=== PATIENT | male | born 1970 | race Caucasian/White ===

== ENCOUNTER 2020-07-27 16:03 | Inpatient (IN) | payer MEDICARE ==
[~2020-07-27] VITALS: Ht 162.6 cm; Wt 107.5 kg
[2020-07-27 16:51] LABS: CREATINE KINASE 355 IU/L (30-200)
[2020-07-27 18:25] VITALS: BP 161/99
[2020-07-27] MEDS ORDERED: HEPARIN SOD (PORCINE) 1000 UNIT/ML SDV IV PRN (19:15)
[2020-07-27] MEDS ORDERED: MANNITOL 25% 12.5GM/50 ML VIAL IV PRN (19:15)
[2020-07-27] MEDS ORDERED: SODIUM CHLORIDE 0.9% 1000ML 2,000 ML IV PRN (19:15)
[2020-07-27] MEDS ORDERED: NICOTINE 21 MG/EA PATCH TOP PRN (19:45)
[2020-07-27] MEDS ORDERED: ACETAMINOPHEN 325 MG TAB PO PRN (19:45)
[2020-07-27] MEDS ORDERED: ACETAMINOPHEN/CODEINE 300MG - 30MG TAB PO PRN (19:45)
[2020-07-27] MEDS ORDERED: HYDRALAZINE HCL 20 MG/ML VIAL IV PRN (19:45)
[2020-07-27 20:00] VITALS: BP 179/94
[2020-07-27] MEDS: ONDANSETRON HCL INJ 2MG/ML 2ML 2 MG/ML VIAL IV PRN (21:30)
[2020-07-27] MEDS: MORPHINE SULFATE INJ 4 MG/ML INJ 1ML IV PRN (21:30)
[2020-07-27] MEDS ORDERED: PERMETHRIN60 GM (21:47)
[2020-07-27] MEDS ORDERED: AMLODIPINE BESY10 MG PO (21:47)
[2020-07-27] MEDS ORDERED: ATORVASTATIN CA20 MG PO (21:47)
[2020-07-27] MEDS ORDERED: ARIPIPRAZOLE5 MG PO (21:47)
[2020-07-27] MEDS ORDERED: SERTRALINE HCL100 MG PO (21:47)
[2020-07-27 22:00] VITALS: BP 179/94
[2020-07-28] VITALS: BP 162/93
[2020-07-28 02:57] LABS: CREATINE KINASE 273 IU/L (30-200)
[2020-07-28] MEDS: MORPHINE SULFATE INJ 4 MG/ML INJ 1ML IV PRN ×3 (03:38→21:11)
[2020-07-28] MEDS: ONDANSETRON HCL INJ 2MG/ML 2ML 2 MG/ML VIAL IV PRN ×2 (03:38→21:11)
[2020-07-28 04:00] VITALS: BP 125/86
[2020-07-28 06:18] LABS: BASOPHILS # (AUTO) 0.1 (0.0-0.1); BASOPHILS % 0.7 % (0.0-1.0); EOSINOPHILS # (AUTO) 0.3 (0.0-0.4); EOSINOPHILS % 3.6 % (0.0-6.0); HEMATOCRIT 25.5 % (38.2-49.6); HEMOGLOBIN 8.5 g/dL (14.0-18.0); LYMPHOCYTES # (AUTO) 2.8 (1.0-3.2); LYMPHOCYTES % 30.8 % (18.0-39.1); MEAN CORPUSCULAR HEMOGLOBIN 29.4 pg (28-32); MEAN CORPUSCULAR HGB CONC 33.3 g/dL (31-35); MEAN CORPUSCULAR VOLUME 88.2 fL (81-99); MONOCYTES # (AUTO) 0.9 (0.2-0.8); MONOCYTES % 9.4 % (4.4-11.3); NEUTROPHILS % 55.2 % (38.7-80.0); PLATELET COUNT 255 x10e3/uL (140-360); RED BLOOD COUNT 2.89 x10e6/uL (4.3-5.7); RED CELL DISTRIBUTION WIDTH 13.2 % (11.7-14.4)
[2020-07-28 06:42] LABS: ALBUMIN 3.6 g/dL (3.5-5.0); ALBUMIN/GLOBULIN RATIO 1.2 (0.8-2.0); ANION GAP 14.2 mmol/L (8-16); CALCIUM 7.1 mg/dL (8.4-10.2); CREATININE, SERUM 7.03 mg/dL (0.72-1.25); MAGNESIUM 1.6 MG/DL (1.3-2.1); PHOSPHORUS 6.2 MG/DL (2.3-4.7); POTASSIUM 4.2 mmol/L (3.5-5.1)
[2020-07-28 08:04] VITALS: BP 125/86
[2020-07-28 08:28] VITALS: BP 139/82
[2020-07-28 08:58] LABS: CREATINE KINASE 242 IU/L (30-200)
[2020-07-28] MEDS ORDERED: PERMETHRIN 5% CREAM 60 GM TUBE TOP ONE (09:00)
[2020-07-28 16:08] VITALS: BP 140/104
[2020-07-28 20:00] VITALS: BP 135/88
[2020-07-28] MEDS: ATORVASTATIN 20 MG TAB PO SCH (21:11)
[2020-07-29] VITALS (8 sets, daily range): BP systolic 126–161; BP diastolic 74–109
[2020-07-29 06:18] LABS: BASOPHILS # (AUTO) 0.1 (0.0-0.1); BASOPHILS % 0.9 % (0.0-1.0); EOSINOPHILS # (AUTO) 0.4 (0.0-0.4); EOSINOPHILS % 4.5 % (0.0-6.0); HEMATOCRIT 26.8 % (38.2-49.6); HEMOGLOBIN 8.5 g/dL (14.0-18.0); LYMPHOCYTES # (AUTO) 2.6 (1.0-3.2); LYMPHOCYTES % 31.8 % (18.0-39.1); MEAN CORPUSCULAR HEMOGLOBIN 28.4 pg (28-32); MEAN CORPUSCULAR HGB CONC 31.7 g/dL (31-35); MEAN CORPUSCULAR VOLUME 89.6 fL (81-99); MONOCYTES # (AUTO) 0.7 (0.2-0.8); NEUTROPHILS # (AUTO) 4.3 (2.1-6.9); NEUTROPHILS % 53.6 % (38.7-80.0); PLATELET COUNT 249 x10e3/uL (140-360); RED BLOOD COUNT 2.99 x10e6/uL (4.3-5.7); RED CELL DISTRIBUTION WIDTH 13.2 % (11.7-14.4)
[2020-07-29 06:41] LABS: ALBUMIN 3.8 g/dL (3.5-5.0); ALBUMIN/GLOBULIN RATIO 1.3 (0.8-2.0); ANION GAP 15.1 mmol/L (8-16); CALCIUM 7.7 mg/dL (8.4-10.2); CREATININE, SERUM 6.52 mg/dL (0.72-1.25); POTASSIUM 4.1 mmol/L (3.5-5.1)
[2020-07-29 07:05] LABS: % IRON SATURATION 16 % (15-50); IRON 54 ug/dL (65-175); TOTAL IRON BINDING CAPACITY 340 ug/dL (261-478); TRANSFERRIN 243 mg/dL (174-364)
[2020-07-29] MEDS ORDERED: ARIPIPRAZOLE 5 MG PO SCH (09:00)
[2020-07-29] MEDS ORDERED: HEPARIN SOD (PORCINE) 1000 UNIT/ML SDV IV PRN (09:45)
[2020-07-29] MEDS: ARIPIPRAZOLE 5 MG TABLET PO SCH (12:01)
[2020-07-29] MEDS: AMLODIPINE BESYLATE 10 MG TAB PO SCH (12:01)
[2020-07-29] MEDS: MORPHINE SULFATE INJ 4 MG/ML INJ 1ML IV PRN ×2 (12:01→20:37)
[2020-07-29] MEDS: SERTRALINE HCL 100 MG TAB PO SCH (12:01)
[2020-07-29] MEDS: ONDANSETRON HCL INJ 2MG/ML 2ML 2 MG/ML VIAL IV PRN (13:58)
[2020-07-29] MEDS: CALCIUM ACETATE 667 MG GELCAP PO SCH ×2 (15:18→20:37)
[2020-07-29] MEDS: ATORVASTATIN 20 MG TAB PO SCH (20:37)
[2020-07-30] VITALS (8 sets, daily range): BP systolic 126–140; BP diastolic 73–87
[2020-07-30] MEDS: CALCIUM ACETATE 667 MG GELCAP PO SCH ×3 (08:11→22:10)
[2020-07-30] MEDS: AMLODIPINE BESYLATE 10 MG TAB PO SCH (08:11)
[2020-07-30] MEDS: ARIPIPRAZOLE 5 MG TABLET PO SCH (08:11)
[2020-07-30] MEDS: SERTRALINE HCL 100 MG TAB PO SCH (08:12)
[2020-07-30] MEDS: MORPHINE SULFATE INJ 4 MG/ML INJ 1ML IV PRN ×3 (09:19→22:25)
[2020-07-30] MEDS: ONDANSETRON HCL INJ 2MG/ML 2ML 2 MG/ML VIAL IV PRN ×3 (09:19→22:25)
[2020-07-30] MEDS: ATORVASTATIN 20 MG TAB PO SCH (22:10)
[2020-07-31] VITALS (9 sets, daily range): BP systolic 89–148; BP diastolic 50–94
[2020-07-31 05:52] LABS: BASOPHILS # (AUTO) 0.1 (0.0-0.1); BASOPHILS % 0.5 % (0.0-1.0); EOSINOPHILS # (AUTO) 0.4 (0.0-0.4); EOSINOPHILS % 3.9 % (0.0-6.0); HEMATOCRIT 27.8 % (38.2-49.6); HEMOGLOBIN 9.1 g/dL (14.0-18.0); LYMPHOCYTES # (AUTO) 2.2 (1.0-3.2); LYMPHOCYTES % 22.5 % (18.0-39.1); MEAN CORPUSCULAR HEMOGLOBIN 29.3 pg (28-32); MEAN CORPUSCULAR HGB CONC 32.7 g/dL (31-35); MEAN CORPUSCULAR VOLUME 89.4 fL (81-99); MONOCYTES # (AUTO) 0.7 (0.2-0.8); MONOCYTES % 7.1 % (4.4-11.3); NEUTROPHILS # (AUTO) 6.5 (2.1-6.9); NEUTROPHILS % 65.7 % (38.7-80.0); PLATELET COUNT 243 x10e3/uL (140-360); RED BLOOD COUNT 3.11 x10e6/uL (4.3-5.7); RED CELL DISTRIBUTION WIDTH 12.6 % (11.7-14.4)
[2020-07-31 06:17] LABS: INR 0.99; PROTHROMBIN TIME 13.6 seconds (11.9-14.5)
[2020-07-31 06:18] LABS: PARTIAL THROMBOPLASTIN TIME 31.1 seconds (23.8-35.5)
[2020-07-31 06:29] LABS: ANION GAP 17.5 mmol/L (8-16); CALCIUM 8.4 mg/dL (8.4-10.2); CREATININE, SERUM 7.1 mg/dL (0.72-1.25); POTASSIUM 4.5 mmol/L (3.5-5.1)
[2020-07-31] MEDS: MORPHINE SULFATE INJ 4 MG/ML INJ 1ML IV PRN (10:20)
[2020-07-31] MEDS: CALCIUM ACETATE 667 MG GELCAP PO SCH ×3 (10:21→23:57)
[2020-07-31] MEDS: ARIPIPRAZOLE 5 MG TABLET PO SCH (10:21)
[2020-07-31] MEDS: AMLODIPINE BESYLATE 10 MG TAB PO SCH (10:22)
[2020-07-31] MEDS: SERTRALINE HCL 100 MG TAB PO SCH (10:23)
[2020-07-31] MEDS ORDERED: MIDAZOLAM HCL 2 MG/2 ML VIAL ONE (14:26)
[2020-07-31] MEDS ORDERED: CEFAZOLIN SOD 1 GM/NS 50ML 50 ML IV ONE (14:26)
[2020-07-31] MEDS ORDERED: FENTANYL CITRATE/PF 100MCG/2 ML INJ ONE (14:26)
[2020-07-31] MEDS ORDERED: LIDOCAINE HCL 1% LOCAL INJ 20 ML VIAL ONE (14:44)
[2020-07-31] MEDS ORDERED: SODIUM CHLORIDE 0.9% 250ML 250 ML ONE (14:45)
[2020-07-31] MEDS ORDERED: HEPARIN SOD (PORCINE) 1000 UNIT/ML SDV ONE (15:23)
[2020-07-31] MEDS ORDERED: KETOROLAC TROMETHAMINE 30 MG/ML VIAL IV STA (16:49)
[2020-07-31] MEDS: ATORVASTATIN 20 MG TAB PO SCH (23:57)
[2020-08-01] VITALS (8 sets, daily range): BP systolic 114–149; BP diastolic 62–84
[2020-08-01] MEDS: ONDANSETRON HCL INJ 2MG/ML 2ML 2 MG/ML VIAL IV PRN (02:06)
[2020-08-01] MEDS: MORPHINE SULFATE INJ 4 MG/ML INJ 1ML IV PRN ×3 (02:06→18:03)
[2020-08-01] MEDS: ARIPIPRAZOLE 5 MG TABLET PO SCH (09:26)
[2020-08-01] MEDS: SERTRALINE HCL 100 MG TAB PO SCH (09:26)
[2020-08-01] MEDS: CALCIUM ACETATE 667 MG GELCAP PO SCH ×3 (09:26→21:05)
[2020-08-01] MEDS: AMLODIPINE BESYLATE 10 MG TAB PO SCH (09:26)
[2020-08-01] MEDS: ATORVASTATIN 20 MG TAB PO SCH (21:05)
[2020-08-02] VITALS (7 sets, daily range): BP systolic 82–134; BP diastolic 58–83
[2020-08-02 07:52] LABS: BASOPHILS # (AUTO) 0.1 (0.0-0.1); BASOPHILS % 0.5 % (0.0-1.0); EOSINOPHILS # (AUTO) 0.4 (0.0-0.4); EOSINOPHILS % 4.3 % (0.0-6.0); HEMATOCRIT 26.3 % (38.2-49.6); HEMOGLOBIN 8.6 g/dL (14.0-18.0); LYMPHOCYTES # (AUTO) 2.5 (1.0-3.2); LYMPHOCYTES % 26.4 % (18.0-39.1); MEAN CORPUSCULAR HEMOGLOBIN 28.8 pg (28-32); MEAN CORPUSCULAR HGB CONC 32.7 g/dL (31-35); MONOCYTES # (AUTO) 0.8 (0.2-0.8); MONOCYTES % 8.6 % (4.4-11.3); NEUTROPHILS # (AUTO) 5.6 (2.1-6.9); NEUTROPHILS % 59.9 % (38.7-80.0); PLATELET COUNT 238 x10e3/uL (140-360); RED BLOOD COUNT 2.99 x10e6/uL (4.3-5.7); RED CELL DISTRIBUTION WIDTH 12.3 % (11.7-14.4)
[2020-08-02] MEDS: SERTRALINE HCL 100 MG TAB PO SCH (09:00)
[2020-08-02] MEDS: ARIPIPRAZOLE 5 MG TABLET PO SCH (09:00)
[2020-08-02] MEDS: CALCIUM ACETATE 667 MG GELCAP PO SCH ×2 (09:00→16:00)
[2020-08-02] MEDS: MORPHINE SULFATE INJ 4 MG/ML INJ 1ML IV PRN (11:59)
[2020-08-02] MEDS: AMLODIPINE BESYLATE 10 MG TAB PO SCH (12:01)
[2020-08-02] MEDS ORDERED: Calcium Acetate PO (16:05)
[2020-08-02] MEDS ORDERED: ABILIFY5 MG PO (16:08)
[2020-08-03] MEDS ORDERED: ARIPIPRAZOLE 5 MG TABLET PO SCH (09:00)
== END 2020-08-02 17:12 | disposition home or self-care (01) | DRG 673 ==
LOC: ER 16:10 → ERHOLD 16:33 → MED/SURG 17:39 → MED/SURG2 07-31 18:34
PROVIDERS: ADMIT Internal Medicine; ATTEND Internal Medicine
PROC: 06H033Z Insertion of Infusion Device into Inferior Vena Cava, Percutaneous Approach (ICD-10-PCS; 2020-07-27)
PROC: 5A1D70Z Performance of Urinary Filtration, Intermittent, Less than 6 Hours Per Day (ICD-10-PCS; 2020-07-28)
PROC: 02HV33Z Insertion of Infusion Device into Superior Vena Cava, Percutaneous Approach (ICD-10-PCS; principal; 2020-07-31)
PROC: 0JH63XZ Insertion of Tunneled Vascular Access Device into Chest Subcutaneous Tissue and Fascia, Percutaneous Approach (ICD-10-PCS; 2020-07-31)
DX: I12.0 Hypertensive chronic kidney disease with stage 5 chronic kidney disease or end stage renal disease (principal); N18.6 End stage renal disease; N17.9 Acute kidney failure, unspecified; Z68.41 Body mass index [BMI] 40.0-44.9, adult; Q61.2 Polycystic kidney, adult type; F84.0 Autistic disorder; Z99.2 Dependence on renal dialysis; E66.01 Morbid (severe) obesity due to excess calories; Z85.528 Personal history of other malignant neoplasm of kidney; E78.5 Hyperlipidemia, unspecified; F43.23 Adjustment disorder with mixed anxiety and depressed mood; F90.1 Attention-deficit hyperactivity disorder, predominantly hyperactive type; D63.8 Anemia in other chronic diseases classified elsewhere; E83.39 Other disorders of phosphorus metabolism; Z90.5 Acquired absence of kidney; B86 Scabies; S83.91XA Sprain of unspecified site of right knee, initial encounter
CPT/HCPCS: 36415; 36556; 36558; 74470; 76770; 76937; 77001; 80048; 80053; 82550; 82553; 83540; 83735; 84100; 84466; 84484; 85025; 85610; 85730; 86705; 86706; 87340; 90935; 90962; 99283; C1752; C1769; C1892; J0690; J1644; J1885; J2001; J2250; J2270; J2405; J3010; J7030; J7050; U0002

== ENCOUNTER 2020-08-05 18:57 | Emergency (ER) | payer MEDICARE ==
[~2020-08-05] VITALS: Ht 162.6 cm; Wt 107.5 kg
[~2020-08-05 18:57] MED LIST: ABILIFY5 MG PO; AMLODIPINE BESY10 MG PO; ARIPIPRAZOLE5 MG PO; ATORVASTATIN CA20 MG PO; Calcium Acetate PO; PERMETHRIN60 GM; SERTRALINE HCL100 MG PO
[2020-08-05] MEDS ORDERED: VANCOMYCIN 1GM/NS 250 ML 250 ML IV ONE (19:15)
== END 2020-08-05 20:45 | disposition home or self-care (01) ==
LOC: ER 19:20
DX: Z49.02 Encounter for fitting and adjustment of peritoneal dialysis catheter (principal); I12.0 Hypertensive chronic kidney disease with stage 5 chronic kidney disease or end stage renal disease; N18.6 End stage renal disease; E78.5 Hyperlipidemia, unspecified
CPT/HCPCS: 99283; J3370

== ENCOUNTER 2021-05-25 11:59 | Emergency (ER) | payer MEDICARE ==
[~2021-05-25] VITALS: Ht 165.1 cm; Wt 112.0 kg
[2021-05-25 12:45] LABS: BASOPHILS # (AUTO) 0.1 (0.0-0.1); EOSINOPHILS # (AUTO) 0.5 (0.0-0.4); EOSINOPHILS % 6.6 % (0.0-6.0); HEMATOCRIT 30.2 % (38.2-49.6); HEMOGLOBIN 9.5 g/dL (14.0-18.0); LYMPHOCYTES # (AUTO) 2.3 (1.0-3.2); LYMPHOCYTES % 28.6 % (18.0-39.1); MEAN CORPUSCULAR HEMOGLOBIN 27.5 pg (28-32); MEAN CORPUSCULAR HGB CONC 31.5 g/dL (31-35); MEAN CORPUSCULAR VOLUME 87.5 fL (81-99); MONOCYTES # (AUTO) 0.6 (0.2-0.8); MONOCYTES % 7.2 % (4.4-11.3); NEUTROPHILS # (AUTO) 4.5 (2.1-6.9); NEUTROPHILS % 55.4 % (38.7-80.0); PLATELET COUNT 195 x10e3/uL (140-360); RED BLOOD COUNT 3.45 x10e6/uL (4.3-5.7); RED CELL DISTRIBUTION WIDTH 15.2 % (11.7-14.4)
[2021-05-25 12:59] LABS: ANION GAP 21.1 mmol/L (8-16); CALCIUM 9.2 mg/dL (8.4-10.2); CREATININE, SERUM 11.91 mg/dL (0.72-1.25); POTASSIUM 5.1 mmol/L (3.5-5.1)
[2021-05-25 14:51] VITALS: BP 151/94
== END 2021-05-25 14:52 | disposition home or self-care (01) ==
LOC: ER 12:04
DX: R05.9 Cough, unspecified (principal); Z20.822 Contact with and (suspected) exposure to COVID-19; I12.0 Hypertensive chronic kidney disease with stage 5 chronic kidney disease or end stage renal disease; N18.6 End stage renal disease; Z99.2 Dependence on renal dialysis; R94.31 Abnormal electrocardiogram [ECG] [EKG]
CPT/HCPCS: 36415; 71045; 80048; 83880; 84484; 85025; 93005; 99284; U0002

== ENCOUNTER 2021-08-13 13:14 | Observation (INO) | payer MEDICARE ==
[~2021-08-13] VITALS: Ht 165.1 cm; Wt 112.0 kg
[2021-08-13 14:07] LABS: BASOPHILS # (AUTO) 0.1 (0.0-0.1); BASOPHILS % 1.2 % (0.0-1.0); EOSINOPHILS # (AUTO) 0.2 (0.0-0.4); EOSINOPHILS % 2.7 % (0.0-6.0); HEMATOCRIT 39.4 % (38.2-49.6); HEMOGLOBIN 12.2 g/dL (14.0-18.0); LYMPHOCYTES # (AUTO) 1.7 (1.0-3.2); LYMPHOCYTES % 22.3 % (18.0-39.1); MEAN CORPUSCULAR HEMOGLOBIN 27.7 pg (28-32); MEAN CORPUSCULAR VOLUME 89.3 fL (81-99); MONOCYTES # (AUTO) 0.5 (0.2-0.8); MONOCYTES % 5.9 % (4.4-11.3); NEUTROPHILS # (AUTO) 5.2 (2.1-6.9); NEUTROPHILS % 67.4 % (38.7-80.0); PLATELET COUNT 340 x10e3/uL (140-360); RED BLOOD COUNT 4.41 x10e6/uL (4.3-5.7); RED CELL DISTRIBUTION WIDTH 14.9 % (11.7-14.4)
[2021-08-13 14:13] LABS: INR 1.03; PROTHROMBIN TIME 14.3 seconds (11.9-14.5)
[2021-08-13 14:14] LABS: PARTIAL THROMBOPLASTIN TIME 32.3 seconds (23.8-35.5)
[2021-08-13 14:21] LABS: ALBUMIN 4.5 g/dL (3.5-5.0); ALBUMIN/GLOBULIN RATIO 1.3 (0.8-2.0); ANION GAP 25.6 mmol/L (8-16); CALCIUM 9.1 mg/dL (8.4-10.2); CREATININE, SERUM 16.3 mg/dL (0.72-1.25)
[2021-08-13 14:25] LABS: POTASSIUM 6.6 mmol/L (3.5-5.1)
[2021-08-13] MEDS ORDERED: ALBUTEROL SULF 0.083% NEB SOLN 3 ML NEB NEB STA (14:26)
[2021-08-13] MEDS ORDERED: DEXTROSE 50% SYRINGE 50 ML IV STA (14:26)
[2021-08-13] MEDS ORDERED: INSULIN REGULAR, HUMAN 100 UNIT/1 ML IV ONE (14:30)
[2021-08-13] MEDS ORDERED: CALCIUM GLUCONATE 10% INJ 0.465 MEQ/ML VIAL ONE (14:47)
[2021-08-13] MEDS ORDERED: CALCIUM GLUCONATE 10% INJ 13.95 MEQ in SODIUM CHLORIDE 0.9% 100 ML 100 ML IV ONE (15:00)
[2021-08-13] MEDS ORDERED: SODIUM CHLORIDE 0.9% 1000ML 1,000 ML ONE (15:43)
[2021-08-13 16:29] VITALS: BP 171/94
[2021-08-13] MEDS ORDERED: IOPAMIDOL 370 MG/ML 200 ML INFUS..BTL INJ ONE (16:53)
[2021-08-13] MEDS: HYDRALAZINE HCL 25 MG TAB PO SCH (17:00)
[2021-08-13 17:21] VITALS: BP 171/94
[2021-08-13 17:31] VITALS: BP 171/94
[2021-08-13 20:00] VITALS: BP 161/88
[2021-08-13 21:00] VITALS: BP 135/90
[2021-08-13] MEDS ORDERED: ATORVASTATIN 20 MG TAB PO SCH (21:00)
[2021-08-13] MEDS ORDERED: HYDRALAZINE HCL 20 MG/ML VIAL IV PRN (21:00)
[2021-08-13] MEDS ORDERED: ACETAMINOPHEN 325 MG TAB PO PRN (21:00)
[2021-08-13] MEDS: AMLODIPINE BESYLATE 10 MG TAB PO SCH (22:05)
[2021-08-13] MEDS: CALCIUM ACETATE 667 MG GELCAP PO SCH (22:06)
[2021-08-14] VITALS: BP 166/88
[2021-08-14 04:00] VITALS: BP 146/87
[2021-08-14 05:25] LABS: BASOPHILS # (AUTO) 0.1 (0.0-0.1); BASOPHILS % 1.3 % (0.0-1.0); EOSINOPHILS # (AUTO) 0.2 (0.0-0.4); EOSINOPHILS % 2.1 % (0.0-6.0); HEMATOCRIT 38.8 % (38.2-49.6); LYMPHOCYTES # (AUTO) 1.6 (1.0-3.2); LYMPHOCYTES % 19.6 % (18.0-39.1); MEAN CORPUSCULAR HEMOGLOBIN 27.4 pg (28-32); MEAN CORPUSCULAR HGB CONC 30.9 g/dL (31-35); MEAN CORPUSCULAR VOLUME 88.6 fL (81-99); MONOCYTES # (AUTO) 0.7 (0.2-0.8); MONOCYTES % 8.6 % (4.4-11.3); NEUTROPHILS # (AUTO) 5.4 (2.1-6.9); NEUTROPHILS % 68.1 % (38.7-80.0); PLATELET COUNT 279 x10e3/uL (140-360); RED BLOOD COUNT 4.38 x10e6/uL (4.3-5.7); RED CELL DISTRIBUTION WIDTH 14.8 % (11.7-14.4)
[2021-08-14 05:51] LABS: ANION GAP 22.6 mmol/L (8-16); CALCIUM 9.3 mg/dL (8.4-10.2); CREATININE, SERUM 10.3 mg/dL (0.72-1.25); POTASSIUM 4.6 mmol/L (3.5-5.1)
[2021-08-14 08:22] VITALS: BP 140/97
[2021-08-14 08:47] VITALS: BP 140/97
[2021-08-14] MEDS ORDERED: ARIPIPRAZOLE 5 MG TABLET PO SCH (09:00)
[2021-08-14] MEDS ORDERED: SERTRALINE HCL 100 MG TAB PO SCH (09:00)
[2021-08-14] MEDS: CALCIUM ACETATE 667 MG GELCAP PO SCH ×2 (09:02→17:17)
[2021-08-14] MEDS: HYDRALAZINE HCL 25 MG TAB PO SCH ×2 (09:02→17:17)
[2021-08-14] MEDS: AMLODIPINE BESYLATE 10 MG TAB PO SCH (09:02)
[2021-08-14] MEDS ORDERED: LIDOCAINE HCL 2% LOCAL INJ 5 ML SDV VIAL INJ ONE (12:07)
[2021-08-14] MEDS ORDERED: PROPOFOL IV EMULSION 10 MG/ML 20 ML VIAL ONE (12:07)
[2021-08-14] MEDS ORDERED: ONDANSETRON HCL INJ 2MG/ML 2ML 2 MG/ML VIAL ONE (12:07)
[2021-08-14] MEDS ORDERED: POVIDONE IODINE 0.05% 0.05 % ML PO ONE (12:07)
[2021-08-14] MEDS ORDERED: METOCLOPRAMIDE HCL 10 MG/2ML VIAL ONE (12:07)
[2021-08-14 12:17] VITALS: BP 137/95
[2021-08-14] MEDS ORDERED: FENTANYL CITRATE/PF 100MCG/2 ML INJ ONE (12:21)
[2021-08-14] MEDS ORDERED: MIDAZOLAM HCL 2 MG/2 ML VIAL ONE (12:21)
[2021-08-14] MEDS: ONDANSETRON HCL INJ 2MG/ML 2ML 2 MG/ML VIAL IV PRN ×2 (13:45→13:47)
[2021-08-14 16:00] VITALS: BP 127/80
[2021-08-14] MEDS ORDERED: OMEPRAZOLE40 MG PO (18:04)
[2021-08-14] MEDS ORDERED: ONDANSETRON ODT8 MG PO (18:05)
== END 2021-08-14 18:30 | disposition home or self-care (01) ==
LOC: ER 13:52 → ERHOLD 14:53 → MED/SURG 16:00
PROVIDERS: ADMIT Internal Medicine; ATTEND Internal Medicine
DX: K20.91 Esophagitis, unspecified with bleeding (principal); K44.9 Diaphragmatic hernia without obstruction or gangrene; K29.70 Gastritis, unspecified, without bleeding; K31.7 Polyp of stomach and duodenum; E87.5 Hyperkalemia; I12.0 Hypertensive chronic kidney disease with stage 5 chronic kidney disease or end stage renal disease; N18.6 End stage renal disease; Z99.2 Dependence on renal dialysis; K92.1 Melena; E66.9 Obesity, unspecified; Z68.41 Body mass index [BMI] 40.0-44.9, adult; E78.5 Hyperlipidemia, unspecified; D63.1 Anemia in chronic kidney disease; Q61.3 Polycystic kidney, unspecified; Z90.5 Acquired absence of kidney; Z88.5 Allergy status to narcotic agent; I16.0 Hypertensive urgency; Z86.19 Personal history of other infectious and parasitic diseases; N25.81 Secondary hyperparathyroidism of renal origin; E87.2 Acidosis; Z20.822 Contact with and (suspected) exposure to COVID-19
CPT/HCPCS: 36415 ×2; 43239; 43450; 74177; 80048; 80053; 85025 ×2; 85610; 85730; 86705; 86706; 86850; 86870; 86880; 86900; 86905; 87340; 88305; 88312; 90935; 93005; 94640; 94799; 96374; 96376; 99001; 99284; C9113 ×2; G0378 ×2; J0610; J1817; J2001; J2405; J2704; J2765; J7030; J7799; Q9967; U0002; 90962; J2250; J3010

== ENCOUNTER 2021-12-28 12:50 | Observation (INO) | payer MEDICARE ==
[~2021-12-28] VITALS: Ht 165.1 cm; Wt 111.6 kg
[~2021-12-28 12:50] MED LIST changes: +OMEPRAZOLE40 MG PO; +ONDANSETRON ODT8 MG PO
[2021-12-28 13:40] LABS: BASOPHILS # (AUTO) 0.1 (0.0-0.1); BASOPHILS % 1.2 % (0.0-1.0); EOSINOPHILS # (AUTO) 0.4 (0.0-0.4); EOSINOPHILS % 4.3 % (0.0-6.0); HEMATOCRIT 35.4 % (38.2-49.6); HEMOGLOBIN 11.2 g/dL (14.0-18.0); LYMPHOCYTES # (AUTO) 2.2 (1.0-3.2); MEAN CORPUSCULAR HEMOGLOBIN 28.1 pg (28-32); MEAN CORPUSCULAR HGB CONC 31.6 g/dL (31-35); MEAN CORPUSCULAR VOLUME 88.7 fL (81-99); MONOCYTES # (AUTO) 0.6 (0.2-0.8); MONOCYTES % 6.9 % (4.4-11.3); NEUTROPHILS # (AUTO) 5.1 (2.1-6.9); NEUTROPHILS % 61.2 % (38.7-80.0); PLATELET COUNT 228 x10e3/uL (140-360); RED BLOOD COUNT 3.99 x10e6/uL (4.3-5.7); RED CELL DISTRIBUTION WIDTH 14.4 % (11.7-14.4)
[2021-12-28 13:50] LABS: INR 0.92; PROTHROMBIN TIME 13.2 seconds (11.9-14.5)
[2021-12-28 13:51] LABS: PARTIAL THROMBOPLASTIN TIME 19.3 seconds (23.8-35.5)
[2021-12-28 14:10] LABS: ALANINE AMINOTRANSFERASE 40 IU/L (0-55); ALBUMIN 3.5 g/dL (3.5-5.0); ALBUMIN/GLOBULIN RATIO 0.9 (0.8-2.0); ALKALINE PHOSPHATASE 169 IU/L (40-150); ANION GAP 27.8 mmol/L (8-16); BLOOD UREA NITROGEN 74 mg/dL (7-26); BUN/CREATININE RATIO 6 (6-25); CALCIUM 7.9 mg/dL (8.4-10.2); CARBON DIOXIDE 20 mmol/L (22-29); CHLORIDE 96 mmol/L (98-107); CREATINE KINASE 184 IU/L (30-200); CREATININE, SERUM 13.01 mg/dL (0.72-1.25); EST GLOMERULAR FILTRATION RATE 4 ML/MIN (60-); GLUCOSE 142 mg/dL (74-118); POTASSIUM 4.8 mmol/L (3.5-5.1); SODIUM 139 mmol/L (136-145)
[2021-12-28 14:34] LABS: MAGNESIUM 1.7 MG/DL (1.3-2.1); PHOSPHORUS 9.1 MG/DL (2.3-4.7)
[2021-12-28 16:00] VITALS: BP 125/81
[2021-12-28] MEDS ORDERED: Morphine 2mg Syringe 2 MG/ML SYR IV PRN (16:00)
[2021-12-28] MEDS ORDERED: ONDANSETRON HCL INJ 2MG/ML 2ML 2 MG/ML VIAL IV PRN (16:00)
[2021-12-28 17:00] VITALS: BP 125/87
[2021-12-28] MEDS ORDERED: RENVELA800 MG PO (18:34)
[2021-12-28] MEDS ORDERED: ACETAMINOPHEN 325 MG/10 ML UDC PO PRN (19:00)
[2021-12-28] MEDS ORDERED: ONDANSETRON HCL 4 MG ORAL DISINTEGRATING TAB PO PRN (19:00)
[2021-12-28] MEDS ORDERED: HYDRALAZINE HCL 20 MG/ML VIAL IV PRN (19:00)
[2021-12-28 20:00] VITALS: BP 141/90
[2021-12-28] MEDS ORDERED: ATORVASTATIN 20 MG TAB PO SCH (21:00)
[2021-12-28] MEDS: CALCIUM ACETATE 667 MG GELCAP PO SCH (21:15)
[2021-12-28 21:16] VITALS: BP 141/90
[2021-12-29] VITALS: BP 139/90
[2021-12-29] MEDS ORDERED: MELATONIN 5 MG TABLET PO PRN (02:15)
[2021-12-29 02:30] LABS: CREATINE KINASE 155 IU/L (30-200)
[2021-12-29 04:00] VITALS: BP 117/66
[2021-12-29 06:07] LABS: BASOPHILS # (AUTO) 0.1 (0.0-0.1); BASOPHILS % 0.7 % (0.0-1.0); EOSINOPHILS # (AUTO) 0.4 (0.0-0.4); EOSINOPHILS % 3.8 % (0.0-6.0); HEMATOCRIT 35.2 % (38.2-49.6); HEMOGLOBIN 11.1 g/dL (14.0-18.0); LYMPHOCYTES # (AUTO) 2.9 (1.0-3.2); LYMPHOCYTES % 28.2 % (18.0-39.1); MEAN CORPUSCULAR HGB CONC 31.5 g/dL (31-35); MEAN CORPUSCULAR VOLUME 88.9 fL (81-99); MONOCYTES # (AUTO) 0.7 (0.2-0.8); MONOCYTES % 6.9 % (4.4-11.3); NEUTROPHILS # (AUTO) 6.1 (2.1-6.9); PLATELET COUNT 195 x10e3/uL (140-360); RED BLOOD COUNT 3.96 x10e6/uL (4.3-5.7); RED CELL DISTRIBUTION WIDTH 13.9 % (11.7-14.4)
[2021-12-29 06:34] LABS: ALBUMIN 3.4 g/dL (3.5-5.0); ALBUMIN/GLOBULIN RATIO 0.9 (0.8-2.0); ANION GAP 26.6 mmol/L (8-16); CALCIUM 7.7 mg/dL (8.4-10.2); CHOL/HDL RATIO 7.1 (3.9-4.7); CREATININE, SERUM 14.28 mg/dL (0.72-1.25); POTASSIUM 4.6 mmol/L (3.5-5.1)
[2021-12-29 06:56] LABS: THYROID STIMULATING HORMONE 2.792 uIU/mL (0.350-4.940)
[2021-12-29 06:58] LABS: CREATINE KINASE MB 1.7 ng/mL (0-5.0)
[2021-12-29] MEDS ORDERED: SODIUM CHLORIDE 0.9% 1000ML 2,000 ML ONE (07:40)
[2021-12-29] MEDS ORDERED: SEVELAMER CARBONATE 800 MG TAB PO SCH (08:00)
[2021-12-29] MEDS ORDERED: ONDANSETRON HCL 4 MG ORAL DISINTEGRATING TAB PO SCH (09:00)
[2021-12-29] MEDS ORDERED: AMLODIPINE BESYLATE 10 MG TAB PO SCH (09:00)
[2021-12-29] MEDS: CALCIUM ACETATE 667 MG GELCAP PO SCH (09:05)
[2021-12-29] MEDS: SEVELAMER CARBONATE 800 MG TAB PO SCH ×2 (09:05→12:20)
[2021-12-29 09:20] VITALS: BP 149/97
[2021-12-29 09:23] VITALS: BP 149/97
[2021-12-29] MEDS ORDERED: POLYETHYLENE GLYCOL 3350 17 GM PACK PO SCH (10:00)
[2021-12-29] MEDS ORDERED: SODIUM CHLORIDE 0.9% 1000ML 1,000 ML ONE (11:15)
[2021-12-29 13:23] VITALS: BP 147/95
[2021-12-29] MEDS ORDERED: ACETAMINOP325 MG/10 PO (13:29)
[2021-12-29] MEDS ORDERED: MIRALAX17 GM PO (13:29)
== END 2021-12-29 16:07 | disposition home or self-care (01) ==
LOC: ER 12:58 → ERHOLD 15:50 → INTOOBSV 15:50 → MED/SURG2 17:03
PROVIDERS: ADMIT Internal Medicine; ATTEND Internal Medicine
DX: R07.89 Other chest pain (principal); E87.5 Hyperkalemia; N18.6 End stage renal disease; Z99.2 Dependence on renal dialysis; K64.9 Unspecified hemorrhoids; I25.10 Atherosclerotic heart disease of native coronary artery without angina pectoris; I13.11 Hypertensive heart and chronic kidney disease without heart failure, with stage 5 chronic kidney disease, or end stage renal disease; R73.9 Hyperglycemia, unspecified; D63.1 Anemia in chronic kidney disease; F84.0 Autistic disorder; F90.9 Attention-deficit hyperactivity disorder, unspecified type; E83.39 Other disorders of phosphorus metabolism; E83.42 Hypomagnesemia; E78.1 Pure hyperglyceridemia; Z85.53 Personal history of malignant neoplasm of renal pelvis; Z90.5 Acquired absence of kidney; Z20.822 Contact with and (suspected) exposure to COVID-19
CPT/HCPCS: 36415; 71045; 80053 ×2; 80061; 82550 ×2; 82553 ×2; 83036; 83735; 83880; 84100; 84443; 84484 ×2; 85025 ×2; 85610; 85730; 93005; 93306; 94799; 99284; G0378 ×2; J2270; J7030; U0002